=== PATIENT | female | born 1970 | race Caucasian/White ===

== ENCOUNTER → 2017-03-15 | Outpatient (CLI) | payer BC ==
--- NOTE | 2017-03-15 15:15 | PCVCIMAG ---
APPROVED REPORT Exam: Stress Echocardiogram Indication: Chest pain Stress Nurse: Kristen Ceballos RN Status: routine HR: 86 bpm Rhythm: NSR Medical History Medical History: Obesity Procedure The patient underwent an Exercise Stress Test using the Antwon Protocol. Blood pressure, heart rate, and EKG were monitored. An Echocardiogram was performed by hvac operations technician in four stages in quad fashion. At peak stress, four selected images were obtained and placed side by side with resting images for comparison. Stress Test Details Stress Test: Exercise stress testing was performed using a Antwon protocol. HR Resting HR: 86 bpmMax Heart Rate (APMHR): 176 bpm Max HR Achieved: 184 bpmTarget HR (85% APMHR): 149 bpm % of APMHR: 104 Recovery HR: 103 bpm HR response to stress: Normal HR response to stress BP Resting BP: 136/78 mmHg Max BP: 168/78 mmHg Recovery BP: 156/80 mmHg ECG Resting ECG: Sinus Rhythm Stress ECG: Sinus Rhythm Arrhythmia: Frequent PVCs, one triplet PVC Recovery ECG: Sinus Rhythm with non-specific ST changes Clinical Reason for Termination: Dyspnea Stress Symptoms: Dyspnea Exercise duration: 8 min 13 sec Highest Stage Achieved: Stage 3: 3.4 mph at 14% grade. Exercise capacity: 10.1 METs Stress ECG Conclusion 1. SUBJECTIVELY NEGATIVE FOR ISCHEMIA 2. ELECTROCARDIOGRAPHICALLY NEGATIVE FOR ISCHEMIA 3. SATIFACTORY FUNCTIONAL CAPACITY Pre-Stress Echo The resting Echocardiogram showed normal left ventricular contractility with an estimated Ejection Fraction of about 50-55%. Normal wall motion in all segments on baseline images. Post-Stress Echo The stress Echocardiogram showed normal left ventricular contractility with an estimated Ejection Fraction of about 60-65%. Normal augmentation of wall motion in all segments on post stress images. Clinical No clinical or ECG evidence for ischemia. Conclusion Clinical Response: Non-ischemic Exercise Capacity: Average Stress ECG Response: Non-ischemic Stress Echo Images: Equivocal 1. DEVELOPMENT OF WHAT APPEARS TO BE A HINGE POINT IN THE DISTAL SEPTAL WALL SUGGESTIVE OF ISCHEMIA 2. INTERMEDIATE RISK STUDY <Conclusion> 1. DEVELOPMENT OF WHAT APPEARS TO BE A HINGE POINT IN THE DISTAL SEPTAL WALL SUGGESTIVE OF ISCHEMIA 2. INTERMEDIATE RISK STUDY
== END ==
LOC: PCVCIMAG 14:04
PROVIDERS: ATTEND Internal Medicine
DX: R07.89 Other chest pain (principal)
CPT/HCPCS: 93325; 93351